=== PATIENT | female | born 1985 | race Caucasian/White ===

== ENCOUNTER 2018-07-27 08:00 | Outpatient (CLI) | payer OTHER ==
[~2018-07-27 08:00] MED LIST: COLACE100 MG PO; IRON1TAB4 PO; NAPROXEN500 MG PO; TYLENOL-CODEINE1 TAB PO; ZANTAC150 M3 PO
== END 2018-07-27 09:43 | disposition home or self-care (01) ==
LOC: MAMO-SONO 08:00
DX: N60.11 Diffuse cystic mastopathy of right breast (principal); N60.12 Diffuse cystic mastopathy of left breast